=== PATIENT | female | born 1995 | race Asian ===

== ENCOUNTER 2018-01-13 12:04 | Emergency (ER) | payer OTHER ==
[2018-01-13 12:17] VITALS: BP 128/83; PULSE 67; TEMP 98; BMI 28.1
--- NOTE | 2018-01-13 12:40 | PDOC ---
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 ), Care Provider (was wearing a face shield but some drops of fluid dripped from her forehead towards the right eye.) Exam Limitations: No Limitations - History of Present Illness Timing: just prior to arrival Severity: mild Exposed Location: Right: Face, Eye(s) Assessing Significant Risk PEP: Yes Mucocutaneous Past History - Travel Traveled outside of the country in the last 30 days: No Close contact w/someone who was outside of country & ill: No - Past Medical History Allergies/Adverse Reactions: Allergies Allergy/AdvReac Type Severity Reaction Status Date / Time No Known Allergies Allergy Verified 01/13/18 12:04 Home Medications: Ambulatory Orders Levothyroxine [Synthroid -] 50 mcg PO DAILY 01/13/18 COPD: No Thyroid Disease: Yes - Suicide/Smoking/Psychosocial Hx Smoking History: Never smoked Hx Alcohol Use: Yes (occasionally) Drug/Substance Use Hx: No Substance Use Type: Alcohol Review of Systems - Review of Systems Able to Perform ROS?: Yes Is the patient limited [place] proficient: Yes Constitutional: No: Symptoms Reported, See HPI, Chills, Diaphoresis, Fever, Loss of Appetite, Malaise, Night Sweats, Weakness, Weight Stable, Unintentional Wgt. Loss, Unexplained wgt Loss, Other HEENTM: Yes: See HPI Respiratory: No: Symptoms reported, See HPI, Cough, Orthopnea, Shortness of Breath, SOB with Exertion, SOB at Rest, Stridor, Wheezing, Productive cough, Hemoptysis, Other Cardiac (ROS): No: Symptoms Reported, See HPI, Chest Pain, Edema, Irregular Heart Rate, Lightheadedness, Palpitations, Syncope, Chest Tightness, Other Integumentary: Yes: See HPI Endocrine: No: Symptoms Reported, See HPI, Excessive Sweating, Flushing, Intolerance to Cold, Intolerance to Heat, Increased Hunger, Increased Thirst, Increased Urine, Unexplained Weight Gain, Unexplained Weight Loss, Change in Weight, Other Hematologic/Lymphatic: No: Symptoms Reported, See HPI, Anemia, Blood Clots, Easy Bleeding, Easy Bruising, Bleeding Diathesis, Lymph Node Abnormalities, Swollen Glands, Other All Other Systems: Reviewed and Negative *Physical Exam - Vital Signs Last Vital Signs Temp Pulse Resp BP Pulse Ox 98 F 67 15 128/83 100 01/13/18 12:04 01/13/18 12:04 01/13/18 12:04 01/13/18 12:04 01/13/18 12:04 - Physical Exam General Appearance: Yes: Nourished, Appropriately Dressed. No: Apparent Distress HEENT: positive: BETHEL, Normal ENT Inspection Neck: positive: Supple Respiratory/Chest: positive: Lungs Clear Extremity: positive: Normal Capillary Refill Integumentary: positive: Normal Color, Dry Neurologic: positive: Fully Oriented, Alert, Normal Mood/Affect Post Exposure - ED Protocol - Exposure Treatment Washing/Decontamination: Soap/Water *DC/Admit/Observation/Transfer Diagnosis at time of Disposition: Employee exposure to body fluids - Discharge Dispostion Disposition: HOME Condition at time of disposition: Stable Admit: No - Referrals Referrals: Damien Pelaez MD [Staff Physician] - - Patient Instructions Printed Discharge Instructions: How to Handle Body Fluid Exposure -- Healthcare Worker Additional Instructions: Follow up with Employee Health Department - Post Discharge Activity Forms/Work/School Notes: Back to Work
[2018-01-13 13:01] LABS: BASO % 0.2 % (0-2.0); EOS % 1.9 % (0-4.5); HEMATOCRIT 40.4 % (32.4-45.2); HEMOGLOBIN 13.6 GM/dl (10.7-15.3); LYMPH % 27.3 % (8-40); MCH 29.5 pg (25.7-33.7); MCHC 33.6 g/dl (32.0-36.0); MEAN CELL VOLUME 87.8 fl (80-96); MEAN PLT VOLUME 7.5 fl (7.5-11.1); MONO % 4.8 % (3.8-10.2); NEUT % 65.8 % (42.8-82.8); PLATELET COUNT 322 K/MM3 (134-434); RBC 4.61 M/mm3 (3.60-5.2); RDW 12.6 % (11.6-15.6); WHITE BLOOD COUNT 5.1 K/mm3 (4.0-10.8)
[2018-01-13 13:12] LABS: ALBUMIN 4.4 g/dl (3.5-5.0); ALK PHOS 36 U/L (32-92); ANION GAP 8 (8-16); BILIRUBIN,TOTAL 0.7 mg/dl (0.2-1.0); BLOOD UREA NITROGEN 15 mg/dl (7-18); CHLORIDE 104 mmol/L (98-107); CHOLESTEROL 162 mg/dl; CO2 23 mmol/L (22-28); CREATININE 0.7 mg/dl (0.6-1.3); GAMMA GLUTAMYL TRANSPEPTIDASE 13 U/L (3-64); GLUCOSE,RANDOM 84 mg/dl (74-106); LDH 133 U/L (91-180); PHOSPHOROUS 3.7 mg/dl (2.5-4.6); POTASSIUM 3.6 mmol/L (3.5-5.1); SGOT/AST 18 U/L (10-42); SGPT/ALT 15 U/L (10-40); SODIUM 135 mmol/L (136-145); TOT PROT 7.8 g/dl (6.4-8.3); TRIGLYCERIDES 102 mg/dl (35-160); URIC ACID 5.5 mg/dl (2.6-7.2)
[2018-01-14 06:06] LABS: HBsAG SCREEN Negative (Negative); HEPATITIS B CORE ANTIBODY Negative (Negative)
== END 2018-01-13 13:02 | disposition home or self-care (01) ==
LOC: FER 12:04
DX: Z77.21 Contact with and (suspected) exposure to potentially hazardous body fluids (principal)
CPT/HCPCS: 36415; 80053; 82465; 82977; 83615; 84100; 84478; 84550; 85025; 86704; 86803; 87340; 87389; 99282-25